=== PATIENT | male | born 1980 | race Caucasian/White ===

== ENCOUNTER → 2018-08-17 | Outpatient (CLI) | payer OTHER ==
[~2018-08-17] MED LIST: GADOBUTROL 10 ML VIAL IVP ONE
== END ==
LOC: FIMAGING 06:52
PROVIDERS: ATTEND Physician Assistant
DX: M75.101 Unspecified rotator cuff tear or rupture of right shoulder, not specified as traumatic (principal); M75.21 Bicipital tendinitis, right shoulder
CPT/HCPCS: A9585

== ENCOUNTER 2018-09-05 20:52 | Emergency (ER) | payer OTHER ==
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
[2018-09-05] MEDS ORDERED: ONDANSETRON 4 MG/2 ML VIAL IVP ONE (21:42)
[2018-09-05 21:46] LABS: PLATELET COUNT 233 10^3/uL (150-400)
[2018-09-05 21:54] LABS: INR 0.91 (0.83-1.16); PROTIME(PATIENT) 12.5 SEC (12.0-15.0)
[2018-09-05] MEDS ORDERED: OSELTAMIVIR PHOSPHATE 75 MG CAP PO ONE (23:15)
[2018-09-05] MEDS ORDERED: OXYCODONE/APAP 5/325MG PREPACK#4 BTL TAKEHOME ONE (23:31)
[2018-09-05 23:38] VITALS: BP 129/78
== END 2018-09-05 23:38 | disposition home or self-care (01) ==
DX: J09.X2 Influenza due to identified novel influenza A virus with other respiratory manifestations (principal); M25.511 Pain in right shoulder
CPT/HCPCS: 96374; J2270; J2405

== ENCOUNTER 2018-09-07 14:52 | Emergency (ER) | payer OTHER ==
[2018-09-07 14:58] VITALS: BP 126/99
--- NOTE | 2018-09-07 15:13 | EDPHY ---
H & P Time Seen by Provider: 09/07/18 14:59 HPI/ROS: CHIEF COMPLAINT: Medication refill HISTORY OF PRESENT ILLNESS: 38-year-old male Ms. The ER with right shoulder pain, ran out of Percocet. He was seen the ER 2 days ago for complaints of pain post rotator cuff surgery by Dr. Gael Jasso, given prescription for Percocet which has now run out of. He has not followed up with Dr. Jasso stating that the office has been closed Denies acute complaints. At last emergency department visit he is also diagnosed with influenza he states the symptoms have now resolved. PRIMARY CARE PROVIDER: REVIEW OF SYSTEMS: 10 systems reviewed and are negative with exception of illness mentioned in the history of present illness PHYSICAL EXAM (Prior to examination, patient consented to physical exam, hands were washed and my usual and customary physical exam procedures followed) 1) GENERAL: Well-developed, well-nourished, alert and oriented. Appears to be in no acute distress. 2) HEAD: Normocephalic 3) HEENT: sclera anicteric 4) LUNGS: Breathing comfortably. Smoking Status: Light smoker Constitutional: Initial Vital Signs Temperature (C) 36.8 C 09/07/18 14:56 Heart Rate 78 09/07/18 14:56 Respiratory Rate 16 09/07/18 14:56 Blood Pressure 126/99 H 09/07/18 14:56 O2 Sat (%) 95 09/07/18 14:56 O2 Delivery Mode Room Air Allergies/Adverse Reactions: No Known Allergies Allergy (Unverified 09/05/18 20:56) Home Medications: Medication Instructions Recorded Gas-X 11/26/13 oxyCODONE/APAP 5/325 [Percocet 1 - 2 tab PO Q4-6PRN PRN #15 tab 11/26/13 5/325 (RX)] Oseltamivir Phosphate [Tamiflu] 75 mg PO BID 5 Days capsule 09/05/18 oxyCODONE/APAP 5/325 [Percocet 1 - 2 tab PO Q4PRN PRN #11 tab 09/05/18 5/325 (*)] MDM/Departure - MDM Medications Given: Discontinued Medications Oxycodone/Acetaminophen (Percocet 5/325) 1 tab PO EDNOW ONE Stop: 09/07/18 15:15 Last Admin: 09/07/18 15:25 Dose: 1 tab ED Course/Re-evaluation: I have declined the patient's request for further prescription for Percocet. Today is new year's Day. I Recommend he contact the office of Dr. Jasso tomorrow. I have agreed to give him a single Percocet in the ER at this time however no prescriptions further opiates. He is visibly upset upon hearing this. Provided him Hospital narcotic guidelines. Care of patient under supervision of secondary supervising physician Dr Fowler with whom I discussed case. - Depart Disposition: Home, Routine, Self-Care Clinical Impression: Medication refill Condition: Good Instructions: Medicine Refill (ED) Additional Instructions: Please contact the office of Dr. Gael Jasso tomorrow to be seen as soon as possible. Stand Alone Forms: Narcotic Guidelines Referrals: Gael Jasso MD [Medical Doctor] - 1 day without fail
[2018-09-07] MEDS ORDERED: OXYCODONE/APAP 5/325 TAB PO ONE (15:14)
== END 2018-09-07 15:22 | disposition home or self-care (01) ==
DX: Z76.0 Encounter for issue of repeat prescription (principal); M25.511 Pain in right shoulder